=== PATIENT | female | born 1925 | race Caucasian/White ===

== ENCOUNTER 2017-02-10 21:36 | Inpatient (IN) | payer MEDICARE, BC ==
[~2017-02-10] VITALS: Ht 160 cm; Wt 51.7 kg
[2017-02-11 02:07] VITALS: BP 187/94; BMI 20.9
[2017-02-11] MEDS ORDERED: BUSPAR5 MG PO (03:45)
[2017-02-11] MEDS ORDERED: MELATONIN10 M1 PO (03:47)
[2017-02-11] MEDS ORDERED: ATARAX 25 MG TA25 MG PO (03:55)
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
[2017-02-11 07:47] LABS: BASOPHILS 0.7 % (0.0-2.0); EOSINOPHILS 6.3 % (0-7); HEMOGLOBIN 12.8 g/dL (12-16); IMMATURE GRANULOCYTES 0.2 % (0-5); LYMPHOCYTES 24.1 % (15-50); MCH 32.9 pg (26.0-34.0); MCHC 32.8 g/dL (31.0-37.0); MCV 100.3 fL (80.0-100.0); MEAN PLATELET VOLUME 11.9 fL (7.4-10.4); MONOCYTES 9.8 % (2-11); NEUTROPHILS 58.9 % (40-80); PLATELET COUNT 161 10x3/uL (130-400); RBC 3.89 10x6/uL (4.00-5.40); RDW 13.2 % (11.5-14.5); WBC 4.6 10x3/uL (4.8-10.8)
[2017-02-11 07:53] VITALS: BP 132/61
[2017-02-11 08:31] LABS: ALBUMIN 3.4 g/dL (3.4-5.0); ANION GAP 11.1 mmol/L (8-16); BILIRUBIN - TOTAL 1.11 mg/dL (0.2-1.3); CALCIUM 8.6 mg/dL (8.5-10.1); CARBON DIOXIDE 29.6 mmol/L (21.0-32.0); CHOL - HDL RATIO 2.8 ratio (2.3-4.1); CREATININE - SERUM 1.1 mg/dL (0.6-1.3); LDL-HDL RATIO 1.5 ratio (1.5-3.5); POTASSIUM - SERUM 3.7 mmol/L (3.5-5.1); PROTEIN - SERUM 6.2 g/dL (6.4-8.2); THYROID STIMULATING HORMONE 1.29 uIU/mL (0.36-3.74)
--- NOTE | 2017-02-11 11:10 | NUR ---
PT CONTINUES TO WONDER THE UNIT AND VERY RESTLESS. PT EXPRESSES SOME ANXIETY AND ENCOURAGED PT TO EXPRESS FEELINGS. NO AGGRESSION NOTED. PT MAKING RANDOM DELUSIONAL STATEMENTS. PT THINKS THAT HER IS HERE AND THAT OTHER FEMALE PATIENTS ARE MEN. REORIENTED AND REDIRECTED NEEDED. ORIENTED TO PERSON ONLY. WILL CONTINUE TO MONITOR AND CONTINUE WITH PLAN OF CARE.
--- NOTE | 2017-02-11 18:31 | PSY ---
PATIENT NAME:BOWEN ANGEL MEDICAL RECORD: [id number] : [birth year] LOCATION:[facility] ADMISSION DATE: 02/10/17 ACCOUNT: [id number] PSYCHIATRIC EVALUATION DATE OF EVALUATION: 02/11/17 Initial Psychiatric Workup IDENTIFYING DATA: This is the first [facility]ci admission and the first known psychiatric hospitalization for this 89-year-old white female. HISTORY OF PRESENT ILLNESS: This patient was admitted via the Emergency Room. She had been sent from the memory care unit of the [facility]. The patient had been exhibiting aggression towards both staff and other patients at the [facility]. She was very difficult to redirect and had been physically aggressive. Once the patient arrived on the unit, she was very restless. She slept only about 3 hours last night and is now hyperalert and wandering. PAST MEDICAL HISTORY: Positive only for osteoporosis. MEDICATION AT TIME OF ADMISSION: Included melatonin 10 mg h.s., hydroxyzine p.r.n. and BuSpar 5 mg 3 times a day for anxiety. PAST PSYCHIATRIC HISTORY: The patient has no reported past psychiatric history. FAMILY HISTORY: Unknown. SOCIAL HISTORY: The patient is . She is a resident of the [facility] memory care unit. She does not have substance abuse issues. REVIEW OF SYSTEMS: Noncontributory. MENTAL STATUS: On exam, the patient is pleasant, but clearly quite confused. Mood is slightly anxious. Affect is shallow. Speech is tangential. Content of thought is negative for clear cut psychosis. The patient is oriented to person only. She shows global memory impairment. ASSESSMENT: AXIS I: Alzheimer dementia with behavioral disturbance. AXIS II: No diagnosis. AXIS III: Osteoporosis. AXIS IV: Moderate. AXIS V: 34. PLAN: 1. The patient is admitted for further medical and psychiatric evaluation. 2. Daily supportive therapy. 3. Coordinate with family and facility regarding followup care. TRANSINT:[id number] Voice Confirmation ID: [id number] DOCUMENT ID: [id number] DOUGLAS PALOMO, GUILLE Joshua MD at 1831 CC: [id number] DICTATION DATE: 02/11/17 1104 FORGING PRESS OPERATOR: 02/11/17 1147 [place] [address]
[2017-02-11 19:00] VITALS: BP 140/60
--- NOTE | 2017-02-11 19:16 | NUR ---
PT WANDERING AND ATTEMPTS TO GO INTO OTHER PT ROOMS. PT THINKS EVERYONE IS HER SON OR . PT BECOMES AGITATED WHEN REDIRECTED.
[2017-02-11 21:00] VITALS: BP 140/60
--- NOTE | 2017-02-12 01:04 | NUR ---
B) Recieved patient in the hallway, alert and oriented to self only, very confused, looking for or son, difficult to redirect due to zero short term memory, I) Administered perscribed medications, redirected and oriented several times R) Medication compliant, wanders into others rooms looking for at times, P) Continue plan of care.
[2017-02-12 06:15] LABS: RAPID PLASMA REAGIN Non Reactive (Non Reactive)
[2017-02-12 08:22] LABS: FOLATE (FOLIC ACID) - SERUM 13.6 ng/mL (>3.0); VITAMIN D 25 HYDROXY 29.9 ng/mL (30.0-100.0)
--- NOTE | 2017-02-12 12:17 | NUR ---
Pt sits quietly in chair if close to male patient, whom she thinks is her son or . Will follow him around and gets agitated if redirected away from him. Poor short-term memory. Meds given as ordered. Redirection and reorientation as needed. Will continue to monitor and continue plan of care.
[2017-02-12 20:27] VITALS: BP 145/57
--- NOTE | 2017-02-13 04:09 | NUR ---
B) Recieved ambulating in the day room, alert and oriented to self, very confused with no short term memory, social with peers, cooperative with care I) Administered perscribed medications, redireced and and reoiented as needed, R) Medication compliant, unable to retain any information, asks the same question several times and does nt retain the answer, P) Continue plan of care, continue to monitor.
[2017-02-13 09:40] VITALS: BP 131/71
--- NOTE | 2017-02-13 14:56 | NUR ---
(B)RECEIVED PATIENT SITTING IN A CHAIR AT THE NURSE'S STATION. CONFUSED AND WANDERS IN OTHER ROOMS. POOR INSIGHT INTO THE REASON FOR HOSPITALIZATION. DIFFICULTY FOLLOWING CONVERSATION AND INSTRUCTIONS DUE TO IMPAIRED ABILITY TO COMPREHEND AND PROCESS INFORMATION. RANDOMLY REPEATS WORDS AEB "OUT OUT OUT, SEE SEE SEE, WORK WORK WORK." (I)ADMINISTER MEDS AND MONITOR COMPLIANCE. REORIENT NEEDED. (R)MED COMPLIANT. POOR REORIENTATION DUE TO IMPAIRED ABILITY TO RETAIN INFORMATION. (P)CONTIUE POC AND MAINTAIN FALL PRECAUTIONS.
[2017-02-13 19:30] VITALS: BP 160/72
--- NOTE | 2017-02-14 04:19 | NUR ---
PATIENT WALKING AROUND DINING AREA AND DAYROOM. PLEASANT, AND CALM. COOPERATIVE WITH MEDICATION. ASKING FOR MELINDA. PATIENT ORIENTED TO SELF, NOT TIME, PLACE OR SITUATION. IMPAIRED SHORT TERM MEMORY. SHE FOLLOWS DIRECTION BUT HAS TO BE CONSTANTLY REORIENTED. CONTINUE TO MONITOR, CONTINUE PLAN OF CARE.
[2017-02-14 08:27] VITALS: BP 138/73
--- NOTE | 2017-02-14 09:42 | PN ---
PATIENT:BOWEN ANGEL MEDICAL RECORD: [id number] LOCATION:[facility] ADMISSION DATE: 02/10/17 PROGRESS NOTE DATE OF SERVICE: 02/13/2017 SUBJECTIVE: No coherent complaint. OBJECTIVE: The patient has been more combative, striking at staff, and difficult to redirect. On exam, mood irritable. Affect is brittle. Speech is terse. Content of thought shows nonspecific paranoid ideation. Sensorium shows no change. ASSESSMENT: No change in diagnosis. PLAN: 1. Add Seroquel 25 mg b.i.d. 2. Continue other current medications. 3. Continue supportive therapy. TRANSINT:[id number] Voice Confirmation ID: [id number] DOCUMENT ID: [id number] GUILLE COLE III, MD at 0942 CC: [id number] DICTATION DATE: 02/13/17 1304 SUPERVISOR BONDING: 02/13/17 1538 ADM IN [place] [id number] [place] [address]
--- NOTE | 2017-02-14 09:42 | PN ---
PATIENT:BOWEN ANGEL MEDICAL RECORD: [id number] LOCATION:[facility] ADMISSION DATE: 02/10/17 PROGRESS NOTE DATE OF SERVICE: 02/12/2017 SUBJECTIVE: No new complaint. OBJECTIVE: The patient is pleasant, but exit seeking. She is somewhat intrusive and requires redirection, very poor memory. On exam, mood is euthymic. Affect is bland. Speech is tangential. Content of thought is negative for overt psychosis. Sensorium shows no change. ASSESSMENT: No change in diagnosis. PLAN: 1. Maintain present medications. 2. Continue supportive therapy. TRANSINT:[id number] Voice Confirmation ID: [id number] DOCUMENT ID: [id number] GUILLE COLE III, MD at 0942 CC: [id number] DICTATION DATE: 02/12/17 1222 ART SALES CONSULTANT: 02/12/17 1311 ADM IN [place] [id number] [place] [id number]
--- NOTE | 2017-02-14 13:54 | NUR ---
(B)RECEIVED PATIENT SITTING IN A CHAIR AT THE NURSES STATION. ORIENTED TO SELF ONLY. POOR INSIGHT INTO THE REASON FOR HOSPITALIZATION.DIFFICULTY FOLLOWING TOPIC OF CONVERSATION DUE TO IMPAIRED ABILITY TO COMPREHEND AND PROCESS INFORMATION. (I)ADMINISTER MEDS AND MONITOR COMPLIANCE. REORIENT NEEDED. (R)MED COMPLIANT. POOR REORIENTATION DUE TO INABILITY TO SEPARATE REALITY FROM FANTASY. (P)CONTINUE POC AND MAINTAIN FALL PRECAUTONS.
[2017-02-14 19:30] VITALS: BP 149/80
--- NOTE | 2017-02-15 00:49 | NUR ---
B) Recieved sitting in the day room, alert and oriented to self, calm and social with peers, cooperative with assessment, I) Administered perscribed medications, redirected and oriented as needed, R) medication compliant, resting now quietly in bed, P) Continue plan of care.
[2017-02-15 07:00] VITALS: BP 141/74
--- NOTE | 2017-02-15 12:17 | NUR ---
RECEIVED SITTING IN CHAIR THIS AM.IS ORIENTED TO SELF ONLY,ATTEMPT TO REORIENT TO TIME AND PLACE WITH QUESTIONABLE RESULTS.HAS NOT BEEN OBSERVED LOOKING FOR AND SPOUSE THIS AM.HAS IRREGULAR HEARTBEAT.IS CONTINENT OF BOWEL AND BLADDER.WILL CONTINUE WITH PLAN OF CARE,MONITOR FOR CHANGES AND SAFETY.
[2017-02-15 19:30] VITALS: BP 174/75
--- NOTE | 2017-02-15 21:57 | NUR ---
B) PATIENT CALM THIS PM, SHE HAS NOT FOLLOWED ANY MALE PATIENT, SHE IS EASIER TO REDIRECT TODAY, SHE HAS NOT BEEN AGGRESSIVE OR FOUGHT THIS PM. SHE AMBULATES INDEPENDENTLY. I) PROVIDE PRESCRIBED MEDS AND REDIRECT NEEDED. R) PATIENT IS COMPLIANT WITH MEDS AND UNIT [facility]IE[facility]. P) CONTINUE PLAN OF CARE.
[2017-02-16 07:33] LABS: APPEARANCE HAZY (CLEAR); BILIRUBIN NEGATIVE (NEGATIVE); COLOR YELLOW (YELLOW); GLUCOSE NEGATIVE (NEGATIVE); KETONE NEGATIVE (NEGATIVE); LEUKOCYTE ESTERASE TRACE (NEGATIVE); NITRITE NEGATIVE (NEGATIVE); PROTEIN NEGATIVE (NEGATIVE); SPECIFIC GRAVITY 1.015 (1.005-1.020)
[2017-02-16 07:34] LABS: BACTERIA MODERATE /hpf (NONE SEEN); EPITHELIAL CELLS 0-5 /hpf (0-5); MUCUS >1+ /lpf (NONE SEEN); RED CELLS - URINE RARE /hpf (0-5)
--- NOTE | 2017-02-16 08:51 | PN ---
PATIENT:BOWEN ANGEL MEDICAL RECORD: [id number] LOCATION:[facility] ADMISSION DATE: 02/10/17 PROGRESS NOTE DATE OF SERVICE: 02/14/2017 SUBJECTIVE: No new complaint. OBJECTIVE: The patient continues to be confused. She wanders about the unit a great deal. Continues to exist seek a little bit. She is taking her medications. On exam, mood for the most part euthymic. Affect is very shallow. Speech is tangential. Content of thought is negative for clear cut psychosis. The patient is oriented only to person with global memory impairment. ASSESSMENT: No change in diagnosis. PLAN: 1. Maintain current medication. 2. Continue supportive therapy. TRANSINT:[id number] Voice Confirmation ID: [id number] DOCUMENT ID: [id number] GUILLE COLE III, MD at 0851 CC: [id number] DICTATION DATE: 02/14/17 1113 OIL WELL PUMPER: 02/14/17 1121 ADM IN [place] [id number] [place] [id number]
[2017-02-16 09:12] VITALS: BP 100/41
--- NOTE | 2017-02-16 13:17 | NUR ---
B.) Received this am, sitting in chair alert and oriented to self only, poor insight to reason for hospitalization. I.) Administer medications and monitor compliance. Redirect and reorient as need. Monitor safety. R.) Compliant with medications, poor reorientation due to inability to comprehend and process information, answer question of where are you with "i'm here, I'm here, just like them I'm here there, I'll sit right there." No evidence of reorientation. Safely ambulates on unit with no noted exit seeking behavior. No aggression. P.) Contontinue with plan of care.
[2017-02-16 20:23] VITALS: BP 133/98
--- NOTE | 2017-02-16 21:19 | NUR ---
RECEIVED IN HALLWAY. COULD NOT FIND HER ROOM. ASSISTED TO ROOM. CONFUSED. ATTEMPTS TO GET OUT OF BED WITHOUT ASSIST AT TIMES. NO SIGNS OF AGGRESSION. REDIRECT AND REOIRENT NEEDED. REIFORCE FALLS SAFETY. PM MEDS GIVEN ORDERED. RESTING IN BED AT THIS TIME. CONTINUE PLAN OF CARE
[2017-02-17 08:13] VITALS: BP 169/79
[2017-02-17 13:06] VITALS: Ht 160 cm; Wt 51.7 kg
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
--- NOTE | 2017-02-18 00:36 | NUR ---
RECEIVED IN HALLWAY. VERY CONFUSED. WANTING STAFF TO BE AT HER SIDE CONTINUOUSLY. REQUESTING WE WALK HER OUTSIDE. FALLOWING STAFF AROUND UNIT. NO SIGNS OF AGGRESSION. CALM AND COOPERATIVE WITH CARE AND ASSESSMENT. REDIRECT AND REOIENT NEEDED. PM MEDS GIVVEN ORDERED. RESTING EYES CLOSED AT THIS TIME. CONTINUE PLAN OF CARE
--- NOTE | 2017-02-18 08:11 | PN ---
PATIENT:BOWEN ANGEL MEDICAL RECORD: [id number] LOCATION:[facility] ADMISSION DATE: 02/10/17 PROGRESS NOTE DATE OF SERVICE: 02/17/2017 SUBJECTIVE: No new complaint. OBJECTIVE: The patient is pleasant. She is somewhat less intrusive. She did sleep quite well last night. She is tolerating medication. On exam, mood is euthymic. Affect is bland. Speech is tangential. Content of thought is negative for overt psychosis. Sensorium is unchanged. ASSESSMENT: No change in diagnosis. PLAN: 1. Continue all current medications. 2. Continue supportive therapy. TRANSINT:[id number] Voice Confirmation ID: [id number] DOCUMENT ID: [id number] GUILLE COLE III, MD at 0811 CC: [id number] DICTATION DATE: 02/17/17 1222 AGRICULTURE MANAGER: 02/17/17 1833 ADM IN [facility] [address] [place] [address]
--- NOTE | 2017-02-18 08:11 | PN ---
PATIENT:BOWEN ANGEL MEDICAL RECORD: [id number] LOCATION:[facility] ADMISSION DATE: 02/10/17 PROGRESS NOTE DATE OF SERVICE: 02/16/2017 SUBJECTIVE: No new complaint. OBJECTIVE: The patient continues to wander about. She becomes much more agitated and at times combative in the late afternoon and early evening. On exam this morning, the patient's mood is euthymic. Affect is bland. Speech is tangential. Content of thought is positive for moderate delusional ideation. Sensorium shows no change. ASSESSMENT: No change in diagnosis. PLAN: 1. Change Seroquel to 50 mg at 3:00 p.m. only. 2. Continue other medications. 3. Continue supportive therapy. TRANSINT:[id number] Voice Confirmation ID: [id number] DOCUMENT ID: [id number] GUILLE COLE III, MD at 0811 CC: [id number] DICTATION DATE: 02/16/17 1229 DISPATCHER SERVICE CHIEF: 02/16/172002 ADM IN [address] [place] [address]
[2017-02-18 08:36] VITALS: BP 124/52
--- NOTE | 2017-02-18 11:56 | NUR ---
B) Received pt in day room for group activity, pt enjoys dancing with search director and was quite appreciative, med compliant this a.m. with lorazepam 0.5 mg admin PO for anxiety earlier this shift - see mar., medication effective. I) Administer meds as ordered and provide group activity. R) No s/s adverse reaction to meds, positive results from group participation/dance, pt mood more cheerful since dancing. P) Cont plan of care including medications and group activity.
[2017-02-18 19:30] VITALS: BP 155/81
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
--- NOTE | 2017-02-18 23:14 | NUR ---
B) Recieved patinent in the day room, alert and oriented to self, restless and unaware of why she is here, closely monitored by MHT due her wanting to wander out of the unit, I) Administered perscribed medications, redirected and oriented as needed, R) Medication compliant, has to be told what to do with her pills; to swallow them, P) Continue plan of care, continue to monitor.
[2017-02-19 09:32] VITALS: BP 158/57
--- NOTE | 2017-02-19 10:16 | NUR ---
B) PATIENT IS CONFUSED, SHE WAS NOT ABLE TO TELL THE GROUP HER NAME. SHE IS CALM. SHE HAS NOT SHOWN ANY AGGRESSION TODAY. SHE IS AMBULATING INDEPENDENTLY. I) PROVIDE PRESCRIBED MEDS, REDIRECT TO UNIT [facility]. R) PATIENT IS COMPLIANT WITH MEDS AND SHE WILL REDIRECT. P) CONTINUE PLAN OF CARE.
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
--- NOTE | 2017-02-19 18:05 | NUR ---
PATIENT IS CALMER NOW, SHE IS NOT AGGRESSIVE AT THIS TIME, SHE IS WALKING AROUND, BUT CONFUSED.
--- NOTE | 2017-02-19 18:44 | NUR ---
PATIENT IS GETTING SLEEPY, DID ASSIST PATIENT TO A DOUGIE CHAIR SINCE SHE IS GETTING DROWSY AND UNSTEADY. REMAINS CALM AT THIS TIME.
[2017-02-19 20:24] VITALS: BP 144/66
--- NOTE | 2017-02-20 00:30 | NUR ---
PATIENT IN DAYROOM. SHE HAS BEEN WANDERING AND EXIT SEEKING. SHE GETS AGITATED WITH STAFF WHEN REDIRECTED. PATIENT WAS GIVEN AN ACTIVITY (FOLDING) BECAME CALM. SHE IS ORIENTED TO FIRST NAME ONLY. PATIENT WAS REORIENTED BUT IS UNABLE TO RETAIN. CONTINUE TO MONITOR, CONTINUE PLAN OF CARE.
--- NOTE | 2017-02-20 06:44 | NUR ---
PATIENT BECAME AGITATED AND WAS HITTING AT STAFF. PRN 0.5 MG ATIVAN GIVEN CONTINUE TO MONITOR
[2017-02-20 09:01] VITALS: BP 147/60
--- NOTE | 2017-02-20 11:54 | NUR ---
B) PATIENT IS CONFUSED, SHE DOES KNOW HER NAME, BUT SHE IS NOT AWARE OF PLACE OR TIME. SHE IS ANXIOUS AND TRYING TO WALK AROUND, BUT SHE IS UNSTEADY THIS AM. I) PROVIDE PRESCRIBED MEDS AND REDIRECT NEEDED. R) PATIENT IS COMPLIANT WITH MEDS. P) CONTINUE PLAN OF CARE.
[2017-02-20 21:50] VITALS: BP 151/83
--- NOTE | 2017-02-21 00:54 | NUR ---
B) Receved patient sitting in a wheelchair in the day room, alert and oriented to self, tries to stand unassisted at times, I) Administered perscribed medications, redirected as needed, monitored for falls and safety, R) medication compliant, easy to redirect this shift, P) Continue plan of care, continue to monitor.
[2017-02-21 09:28] VITALS: BP 103/73
--- NOTE | 2017-02-21 11:57 | PN ---
PATIENT:BOWEN ANGEL MEDICAL RECORD: [id number] LOCATION:[facility] ADMISSION DATE: 02/10/17 PROGRESS NOTE DATE OF SERVICE: 02/20/2017 SUBJECTIVE: The patient's case was discussed with staff. She has no new complaint. OBJECTIVE: The patient is in good behavioral control with limited insight about her condition. She tolerates her medicines well. ASSESSMENT: No change in diagnoses. PLAN: Current medicines and therapies have been reviewed and will be maintained. Long-term prognosis is guarded. TRANSINT:[id number] Voice Confirmation ID: [id number] DOCUMENT ID: [id number] DELFINA WOOD MD at 1157 CC: [id number] DICTATION DATE: 02/20/17 1431 DEVELOPER EVANGELIST: 02/20/17 1451 ADM IN [place] [id number] [place] [address]
--- NOTE | 2017-02-21 14:27 | NUR ---
B) PATIENT IS CALM AND COMPLIANT, SHE IS REDIRECTABLE. SHE IS CONFUSED, DOES NOT COMPREHEND CONVERSATIONS AND SHE'LL SAY "PRETTY, PRETTY" OR "YOU'RE THE MOST BEAUTIFUL MAN I EVER SAW" OR "PURPLE, PURPLE". I) PROVIDE PRESCRIBED MEDS. R) PATIENT IS SITTING NEXT TO STAFF AND SHE IS CALM, SHE IS LISTENING TO REDIRECTION. P) CONTINUE PLAN OF CARE.
[2017-02-21 19:30] VITALS: BP 154/92
--- NOTE | 2017-02-22 01:12 | NUR ---
B) Recieved patient in the day room, alert and anxious, patient was restless and combative with staff, I) Administered perscribed medications, PRN Ativan 1 mg IM given for anxiety at 1855, R) Medication compliant, resting not quietly in bed, P0 Continue plan of care, continue to monitor.
[2017-02-22 07:00] VITALS: BP 148/93
[2017-02-22 08:28] VITALS: BP 148/93
--- NOTE | 2017-02-22 13:07 | NUR ---
B) States she is feeling fine today, has no idea what this buiding is, as far as the State, thinks its number 1 or number 2. Restless periods, quiet and withdrawn other times. I) Administer medications as ordered, redirect and reorient PRN. R) Compliant with medications taken with applesauce. Remains very confused, flat affect, no acting out or behavior problem today. P) Continue to monitor per plan of care.
[2017-02-22 19:30] VITALS: BP 150/71
--- NOTE | 2017-02-22 20:10 | NUR ---
RECEIVED IN DAYROOM. SITTING IN WHEELCHAIR. CALM AND COOPERATIVE WITH CARE AND ASSESSMENT. NO SIGNS OF AGGRESSION. NOT EXIT SEEKING. NOT SOCIALIZING WITH STAFF OR PEERS. CONFUSED. REDIRECT AND REORIENT NEEDED. CONTINUES TO SIT IN WHEELCHAIR QUIETLY. CONTINUE PLAN OF CARE
--- NOTE | 2017-02-23 03:13 | NUR ---
PRN ATIVAN 1 MG IM GIVEN FOR ANXIETY AT 0305.
[2017-02-23 08:08] VITALS: BP 153/82
--- NOTE | 2017-02-23 10:30 | PN ---
PATIENT:BOWEN ANGEL MEDICAL RECORD: [id number] LOCATION:[facility] ADMISSION DATE: 02/10/17 PROGRESS NOTE DATE OF SERVICE: 02/19/2017 SUBJECTIVE: No new complaint. OBJECTIVE: The patient remains active about the unit. She remains somewhat intrusive and seeks an exit. She is very easily agitated. Aside from this, the patient has not been directly combative in the last 24 hours. She appears to be tolerating medication well. On exam, mood is anxious, affect is very shallow. Speech is tangential and rambling. Content of thought is still positive for delusional ideation about her parents. Sensorium shows no change. ASSESSMENT: No change in diagnosis. PLAN: 1. Maintain all current medications. 2. Continue supportive therapy. TRANSINT:[id number] Voice Confirmation ID: [id number] DOCUMENT ID: [id number] GUILLE COLE III, MD at 1030 CC: [id number] DICTATION DATE: 02/19/17 1208 DANDY OPERATOR: 02/19/17 1619 ADM IN [place] [id number] [place] [address]
--- NOTE | 2017-02-23 16:58 | PN ---
PATIENT:BOWEN ANGEL MEDICAL RECORD: [id number] LOCATION:[facility] ADMISSION DATE: 02/10/17 PROGRESS NOTE DATE OF SERVICE: 02/23/2017 SUBJECTIVE: No new verbal complaint. OBJECTIVE: The patient continues to show agitation and occasional combativeness, especially in the afternoon and early evening. She is very difficult to redirect. On exam, mood is slightly irritable. Affect is very brittle. Speech is rambling and tangential. Content of thought shows nonspecific paranoid ideation. Sensorium shows no change. ASSESSMENT: No change in diagnosis. PLAN: 1. Discontinue Seroquel and substitute Risperdal 1 mg twice a day. 2. Continue other medications. 3. Continue supportive therapy. TRANSINT:[id number] Voice Confirmation ID: [id number] DOCUMENT ID: [id number] GUILLE COLE III, MD at 1658 CC: [id number] DICTATION DATE: 02/23/17 1145 ECG TECHNICIAN: 02/23/17 1345 ADM IN [place] [address] [place] [address]
--- NOTE | 2017-02-23 17:56 | NUR ---
ORIENTED TO SELF ONLY.REPEATS WORDS,"HELLO,HELLO","GOOD WAY,GOOD WAY","PRETTY,PRETTY,PRETTY","AROUND,AROUND,AROUND IT".NO COMPLETE THOUGHTS SPOKEN.RESTLESS AT TIMES.IS COMPLIANT WITH MEDS.WILL CONTINUE WITH PLAN OF CARE,MONITOR FOR CHANGES AND SAFETY.
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
[2017-02-23 20:00] VITALS: BP 125/73
--- NOTE | 2017-02-23 20:42 | NUR ---
RECEIVED IN DAYROOM. SITTING IN A CHAIR INSIDE DOOR. CONFUSED. CALM AND COOPERATIVE WITH CARE AND ASSESSMENT. NO SIGNS OF AGGRESSION. CONTINUES TO SIT QUIETLY IN CHAIR. CONTINUE PLAN OF CARE
[2017-02-24 08:59] VITALS: BP 163/69
--- NOTE | 2017-02-24 18:21 | NUR ---
ORIENTED TO SELF ONLY.DOES NOT VERBALIZE A COMPLETE THOUGHT.CONTINUES TO REPEAT WORDS.COMPLIANT WITH MEDS.AMBULATORY IN UNIT.WILL CONTINUE WITH PLAN OF CARE,MONITOR FOR CHANGES AND SAFETY.
--- NOTE | 2017-02-24 19:42 | NUR ---
RECEIVED IN DAYROOM. SITTING IN CHAIR WITH PEERS AT HER SIDE. NOT SOCIALIZING. CONFUSED. CALM AND COOPERATIVE WITH CARE AND ASSESSMENTS. NO SIGNS OF AGGRESSION. REDIRECT AND REORIENT NEEDED. REINFORCE FALLS SAFETY. CONTINUES TO SIT QUIETLY IN CHAIR. CONTINUE PLAN OF CARE
[2017-02-24 22:35] VITALS: BP 174/89
[2017-02-25 08:44] VITALS: BP 160/65
--- NOTE | 2017-02-25 09:31 | NUR ---
Nutrition Follow Up: Chart reviewed. Pt is eating 56% meal avg on a regular diet. She is receiving Ensure with meals. +BM 02/20/17. No new wt to assess. No new labs. Meds noted including Vit B12, Vit D. Pt with fair po intake. No BM x 4 days. Rec continue current diet, supplement regimen. Will continue to provide selective menus and honor food preferences. RD following.
--- NOTE | 2017-02-25 12:19 | NUR ---
B) PATIENT IS CONFUSED, BUT SHE HAS BEEN PLEASANT, SHE HAS NOT SHOWN ANY AGGRESSION TODAY. SHE HAS BEEN INTERACTING IN GROUPS. SHE AMBULATES INDEPENDENTLY. I) PROVIDE PRESCRIBED MEDS AND REDIRECT NEEDED. R) PATIENT IS COMPLIANT WITH MEDS. P) CONTINUE PLAN OF CARE.
[2017-02-25 20:00] VITALS: BP 182/77
--- NOTE | 2017-02-25 23:26 | NUR ---
B) Recieved patient in the day room, alert and oriented to self, restless and combative at times, struck a MHT and then said that she did no do anything, I) Administered perscribed medications, monitored for falls and safety, R) Medication compliant, defiant and demanding of her own way, P) Continue plan of care.
--- NOTE | 2017-02-25 23:47 | NUR ---
ATARAX 25 MG PO GIVEN CRUSHED IN APPLESAUCE FOR ANXIETY.
[2017-02-26 09:05] VITALS: BP 151/77
--- NOTE | 2017-02-26 10:26 | PN ---
PATIENT:BOWEN ANGEL MEDICAL RECORD: [id number] LOCATION:L[facility]IANA Costello112 ADMISSION DATE: 02/10/17 PROGRESS NOTE DATE OF SERVICE: 02/24/2017 SUBJECTIVE: No new complaint. OBJECTIVE: The patient again needed a p.r.n. last night. She does much better when she does have structured activity. On exam, mood is slightly anxious. Affect is shallow. Speech is tangential. Content of thought is unchanged. Sensorium is unchanged. ASSESSMENT: No change in diagnosis. PLAN: 1. We will maintain current medication and close observation. 2. Continue supportive therapy. TRANSINT:[id number] Voice Confirmation ID: [id number] DOCUMENT ID: [id number] GUILLE COLE III, MD at 1026 CC: [id number] DICTATION DATE: 02/24/17 1216 DISTRICT GAUGER: 02/24/17 1226 ADM IN [place] [id number] [place] [id number]
--- NOTE | 2017-02-26 11:41 | NUR ---
B) PATIENT IS PLEASANT AND SHE IS CALM, SHE HAS NOT MADE ANY AGGRESSIVE ACTIONS TODAY. SHE AMBULATES INDEPENDENTLY. SHE IS AWAKE IN THE DAY ROOM, INTERACTS MINIMALLY IN GROUPS AND ACTIVITIES SHE MOSTLY TALKS IN WORD SALAD. I) PROVIDE PRESCRIBED MEDS AND REDIRECT NEEDED. R) PATIENT IS COMPLIANT WITH MEDS. P) CONTINUE PLAN OF CARE.
--- NOTE | 2017-02-26 14:31 | PN ---
PATIENT:BOWEN ANGEL MEDICAL RECORD: [id number] LOCATION:[facility] Costello112 ADMISSION DATE: 02/10/17 PROGRESS NOTE DATE OF SERVICE: 02/25/2017 SUBJECTIVE: The patient's case was discussed with staff. She has no new complaint. OBJECTIVE: The patient is in good behavioral control with limited insight about her condition. She tolerates her medicines well. ASSESSMENT: No change in diagnoses. PLAN: Current medicines and therapies have been reviewed and will be maintained. Her long-term prognosis is guarded. TRANSINT:[id number] Voice Confirmation ID: [id number] DOCUMENT ID: [id number] DELFINA WOOD MD at 1431 CC: [id number] DICTATION DATE: 02/25/17 1414 REMOTE ENCODING OPERATIONS SUPERVISOR: 02/25/17 1532 ADM IN [place] [id number] [place] [address]
[2017-02-26 19:30] VITALS: BP 156/50
--- NOTE | 2017-02-26 22:07 | PN ---
PATIENT:BOWEN ANGEL MEDICAL RECORD: [id number] LOCATION:[facility] Gates ADMISSION DATE: 02/10/17 PROGRESS NOTE DATE OF SERVICE: 02/26/2017 SUBJECTIVE: No new complaint. OBJECTIVE: The patient has been doing considerably better over the last 48 hours. She is much less intrusive. She is cooperative, taking medications as prescribed. On exam, mood is euthymic. Affect is bland. Speech is rather terse. Content of thought focuses only on somatic concerns. Sensorium shows no change. ASSESSMENT: No change in diagnosis. PLAN: 1. Maintain current treatment plan. 2. Continue supportive therapy. TRANSINT:[id number] Voice Confirmation ID: [id number] DOCUMENT ID: [id number] GUILLE COLE III, MD at 2207 CC: [id number] DICTATION DATE: 02/26/17 1146 COMMERCIAL LINES ACCOUNT ASSISTANT: 02/26/17 1341 ADM IN [place] [id number] [place] [address]
--- NOTE | 2017-02-27 01:11 | NUR ---
B) Recieved sitting in the day room, alert and oriented to self, intrusive and needy at times, I) Administered perscribed medications, monitored for falls and safety, R) medication compliant, resting now quietly in bed, P) Continue plan of care.
[2017-02-27 08:33] VITALS: BP 143/77
--- NOTE | 2017-02-27 09:00 | NUR ---
B) PATIENT IS AWAKE AND SHE IS PLEASANT, SHE IS AMBULATING INDEPENDENTLY. SHE IS HAVING A DIFFICULT TIME REMEMBERING HOW TO SWALLOW. SHE IS CONFUSED, USES WORD SALAD. I) PROVIDE PRESCRIBED MEDS. R) PATIENT IS COMPLIANT WITH MEDS, SHE TAKES THEM CRUSHED IN [place]A PUDDING. P) CONTINUE PLAN OF CARE.
[2017-02-27] MEDS ORDERED: ARICEPT10 MG PO (12:07)
[2017-02-27] MEDS ORDERED: LISINOPRIL10 MG PO (12:07)
[2017-02-27] MEDS ORDERED: MILK OF MAGNESI30 ML PO (12:08)
[2017-02-27] MEDS ORDERED: TRAZODONE HCL50 MG PO (12:08)
[2017-02-27] MEDS ORDERED: RISPERDAL0.5 MG PO ×2 (12:08)
[2017-02-27] MEDS ORDERED: VITAMIN B-121000 MCG PO (12:09)
[2017-02-27] MEDS ORDERED: SENOKOT-S TABLE1 TAB PO (12:09)
[2017-02-27] MEDS ORDERED: VITAMIN D31000 UNI2 PO (12:09)
--- NOTE | 2017-02-27 13:14 | NUR ---
ELLEN SPOKE WITH PT'S SON, SUMANTH, ABOUT DISCHARGING TODAY AT 1530 TO THE [facility].
--- NOTE | 2017-02-27 13:25 | NUR ---
PATIENT WILL D/C TODAY BACK TO [facility], ALL PAPERWORK FAXED, PATIENT'S BELONGINGS PACKED, ATTEMPTED TO CALL REPORT, NURSE NOT AVAILABLE, WILL TRY AGAIN LATER.
--- NOTE | 2017-02-27 14:35 | NUR ---
CALLED REPORT TO THE [facility]. PATIENT IS READY TO GO. ALL PAPERWORK WORK FAXED, WITH D/C ORDERS AND MAR. HARD COPY MADE AND WILL GIVE TO THE CHIEF SECURITY OFFICER.
--- NOTE | 2017-02-27 15:03 | NUR ---
[facility] RECRUITING ASSOCIATE HERE TO MEDICAL RECEPTIONIST PATIENT, HARD COPY AND BELONGINGS SENT WITH DIVER, PATIENT ASSISTED TO VEHICLE BY RECRUITING ASSOCIATE AND OUR STAFF.
--- NOTE | 2017-03-01 06:18 | DS ---
PATIENT:BOWEN ANGEL :[birth year] MEDICAL RECORD: [id number] DISCHARGE SUMMARY ADMISSION DATE: 02/10/17 DISCHARGE DATE: 02/27/17 DATE OF ADMISSION: 02/10/2017. DATE OF DISCHARGE: 02/27/2017. HISTORY OF PRESENT ILLNESS: This was the first jail admission for this 89-year-old white female. She was brought to the Emergency Department at [facility] because of aggressive behavior toward staff and other patients at the [facility]. For further details, please see previously dictated history. COURSE IN THE HOSPITAL: The patient was seen in consultation by Dr. Kellogg. Dr. Kellogg noted the prior history of osteoporosis, but medical history beyond that was essentially unremarkable. It was noted during the course of the hospitalization the patient did exhibit hypertension. She was started on lisinopril 10 mg daily. Because of persistent agitation, it was necessary to use Risperdal dosage, was maintained at 1 mg twice a day throughout the majority of the hospitalization. She was also started on vitamin B12 and vitamin D supplements and placed on Aricept 10 mg at bedtime as well as trazodone 50 mg at bedtime. The patient showed a very slow resolution of her agitation and intrusiveness. Particular problem was episodes of agitation and the occasional combativeness in the afternoon and evening; however, as the hospitalization progressed, these behaviors improved considerably and by the time of discharge, the patient was calm and tractable, was elected to reduce the dose of Risperdal to 0.5 mg twice a day at the time of discharge. FINAL DIAGNOSES: AXIS I: Alzheimer dementia with behavioral disturbance. AXIS II: No diagnosis. AXIS III: Osteoporosis, hypertension. AXIS IV: Moderate. AXIS V: 40. PLAN: 1. The patient is discharged on current medications back to the [facility]. 2. Diet and activities as tolerated. 3. Follow up through primary care Nel TRANSINT:[id number] Voice Confirmation ID: [id number] DOCUMENT ID: [id number] GUILLE COLE III, MD at 0618 CC: [id number] DICTATION DATE: 02/27/17 1243 TECH BRAZER TESTER: 02/28/17 0315 DIS IN 02/27/17 [place] [id number] [place] [address]
== END 2017-02-27 15:03 | disposition home or self-care (01) | DRG 57 ==
LOC: D.PSYCH 21:36
PROVIDERS: ADMIT Psychiatry & Neurology Psychiatry
DX: G30.9 Alzheimer's disease, unspecified (principal); F02.81 Dementia in other diseases classified elsewhere, unspecified severity, with behavioral disturbance; M81.0 Age-related osteoporosis without current pathological fracture; I10 Essential (primary) hypertension; F41.9 Anxiety disorder, unspecified; E53.8 Deficiency of other specified B group vitamins; E55.9 Vitamin D deficiency, unspecified

== ENCOUNTER 2017-06-23 21:30 | Inpatient (IN) | payer MEDICARE, BC ==
[~2017-06-23] VITALS: Ht 167.6 cm; Wt 49.7 kg
[~2017-06-23 21:30] MED LIST: ARICEPT10 MG PO; ATARAX 25 MG TA25 MG PO; BUSPAR5 MG PO; LISINOPRIL10 MG PO; MELATONIN10 M1 PO; MILK OF MAGNESI30 ML PO; RISPERDAL0.5 MG PO; SENOKOT-S TABLE1 TAB PO; TRAZODONE HCL50 MG PO; VITAMIN B-121000 MCG PO; VITAMIN D31000 UNI2 PO
[2017-06-23] MEDS ORDERED: BUSPAR5 MG PO (22:09)
[2017-06-23] MEDS ORDERED: VITAMIN D250000 UNIT PO (22:10)
--- NOTE | 2017-06-23 23:10 | NUR ---
Patient arrived via EMS from [facility] memory unit for aggression and anxiety at 2100, VSS T 98.0 B/P 162/92, P 90, R 18, O2 96%, Code status is DNR per [facility] and son Lukasz OttoLIZA, code julisa Cruz, physician aware of arrival, patient is clean and well groomed, dressed in nightgown, will continue to monitor.
[2017-06-23 23:29] LABS: APPEARANCE CLEAR (CLEAR); BACTERIA MODERATE /hpf (NONE SEEN); BILIRUBIN NEGATIVE (NEGATIVE); COLOR STRAW (YELLOW); EPITHELIAL CELLS 0-5 /hpf (0-5); GLUCOSE NEGATIVE (NEGATIVE); KETONE NEGATIVE (NEGATIVE); LEUKOCYTE ESTERASE NEGATIVE (NEGATIVE); NITRITE NEGATIVE (NEGATIVE); PROTEIN NEGATIVE (NEGATIVE); RED CELLS - URINE 0-5 /hpf (0-5); UROBILINOGEN NORMAL (NORMAL); WHITE CELLS - URINE 0-5 /hpf (0-5)
[2017-06-24 02:58] VITALS: BP 162/92
[2017-06-24 05:36] LABS: BASOPHILS 0.6 % (0-2); EOSINOPHILS 3.2 % (0-7); HEMATOCRIT 38.7 % (36.0-48.0); HEMOGLOBIN 12.7 g/dL (12-16); IMMATURE GRANULOCYTES 0.2 % (0-5); LYMPHOCYTES 34.1 % (15-50); MCH 33.1 pg (26.0-34.0); MCHC 32.8 g/dL (31.0-37.0); MCV 100.8 fL (80.0-100.0); MONOCYTES 12.3 % (2-11); NEUTROPHILS 49.6 % (40-80); PLATELET COUNT 183 10x3/uL (130-400); RBC 3.84 10x6/uL (4.00-5.40); RDW 13.2 % (11.5-14.5); WBC 4.6 10x3/uL (4.8-10.8)
[2017-06-24 05:46] LABS: HEMOGLOBIN A1C 5.6 % (4.8-6.0)
[2017-06-24 06:02] LABS: ALBUMIN 3.1 g/dL (3.4-5.0); ANION GAP 10.7 mmol/L (8-16); BILIRUBIN - TOTAL 0.6 mg/dL (0.2-1.3); CALCIUM 8.7 mg/dL (8.5-10.1); CARBON DIOXIDE 28.5 mmol/L (21.0-32.0); CHOL - HDL RATIO 2.5 ratio (2.3-4.1); CREATININE - SERUM 1.5 mg/dL (0.6-1.3); LDL-HDL RATIO 1.3 ratio (1.5-3.5); POTASSIUM - SERUM 4.2 mmol/L (3.5-5.1); PROTEIN - SERUM 6.3 g/dL (6.4-8.2); THYROID STIMULATING HORMONE 1.74 uIU/mL (0.36-3.74)
[2017-06-24 08:37] VITALS: BP 151/69
--- NOTE | 2017-06-24 10:45 | NUR ---
B) Rec'd pt in dining room for b'fast, alert, confused, pleasant mood, calm, no aggression noted. I) Admin meds as ordered, provide group therapy. R) Responds well to group therapy, especially enjoying music therapy clapping hands and keeping time to the music. P) Cont plan of care including meds and group therapy.
[2017-06-24 21:41] VITALS: BP 148/84
--- NOTE | 2017-06-25 01:13 | NUR ---
B) Recieved patient in the day room, alert and oriented to self only, very confused and anxious at times, I) Administered perscribed medications and PRN Ativan 0.5 mg PO given for anxiety, R) Medication compliant, resting quietly now, P) Continue plan of care.
[2017-06-25 07:25] LABS: RAPID PLASMA REAGIN Non Reactive (Non Reactive)
--- NOTE | 2017-06-25 08:10 | NUR ---
ASSESSMENT COMPLETE. CONFUSED. DISORIENTED TO TIME,PLACE AND SITUATION.
[2017-06-25 08:18] LABS: FOLATE (FOLIC ACID) - SERUM 10.8 ng/mL (>3.0)
[2017-06-25 08:29] VITALS: BP 133/67
[2017-06-25 09:15] LABS: VITAMIN D 25 HYDROXY 48.3 ng/mL (30.0-100.0)
--- NOTE | 2017-06-25 09:15 | NUR ---
SITTING UP AT TABLE. FIDGETING WITH BRACLETS. TRYING TO PULL NAME BRACLET OFF. SPIT PILLS OUT WHEN PLACED IN MOUTH. PILLS CRUSHED AND GIVEN.
--- NOTE | 2017-06-25 10:10 | NUR ---
SITTING UP IN RECLINER. WANTING TO GET UP. WHEN ASKED TO STAY IN RECLINER, BEGAN STOMPING FEET ON CHAIR, CLAPPING HANDS, AND YELLING OUT.
--- NOTE | 2017-06-25 10:27 | NUR ---
CONTINUES BEING AGITATED AND TRYING TO CLIMB OUT OF RECLINER AND YELLING. ATIVAN PO GIVEN.
--- NOTE | 2017-06-25 11:24 | NUR ---
RESTING QUIETLY WITH EYES CLOSED AT THIS TIME. RESP EVEN,NONLABORED.
--- NOTE | 2017-06-25 13:40 | HP ---
PATIENT: BOWEN ANGEL MEDICAL RECORD: [id number] ACCOUNT: [id number] LOCATION:LILIANA Ojeda : [birth year] ADMISSION DATE: 06/23/17 HISTORY AND PHYSICAL EXAMINATION IDENTIFYING DATA: The patient is 89 years old and she is admitted to the hospital on a voluntary basis. CHIEF COMPLAINT: Agitation and aggression. HISTORY OF PRESENT ILLNESS: The patient is known to us from previous clinical contact. She has an advanced dementia. Apparently, she had been aggressive with staff and other patients at the [facility]. The patient denies this and in fact is showing evidence of very severe cognitive impairment. In fact, when I arrived to see her at lunchtime, she was having to be fed because she could not feed herself. PAST MEDICAL HISTORY: Significant for osteoporosis. PAST PSYCHIATRIC HISTORY: Significant for an advanced dementia for which the patient has been hospitalized multiple times. FAMILY HISTORY: Unknown. ALLERGIES: No known drug allergies. CURRENT MEDICATIONS: Please see the admissions MAR. SOCIAL HISTORY: The patient is . She lives in the [facility]. She has no history of drug or alcohol abuse and generally functioned well both socially and occupationally. MENTAL STATUS EXAMINATION: The patient is awake, alert and oriented to person only. Her mood is euthymic. Her affect is appropriate. Thought processes are disorganized with memory, concentration and abstraction abilities being severely impaired. She denies any active intent to harm herself or others. She is tolerating her medications well. ASSETS: Supportive family members. LIABILITIES: Limited insight. DIAGNOSTIC IMPRESSION: AXIS I: Senile dementia of the Alzheimer's type with behavioral disturbances. AXIS II: None. AXIS III: Osteoporosis. AXIS IV: Moderate stressors. AXIS V: Global assessment of functioning is 25. PLAN: At the time of admission, the patient is in good behavioral control with limited insight about her condition. She does tolerate her medicines well. She will be treated with both mood stabilizing and memory enhancing medications. TRANSINT:[id number] Voice Confirmation ID: [id number] DOCUMENT ID: [id number] HISTORY AND PHYSICAL [id number] BOWEN ANGEL, DELFINA MCCLURE at 1340 CC: [id number] DICTATION DATE: 06/24/17 1442 DREDGE CAPTAIN: 06/24/17 1722 ADM IN [place] [id number] [place] [address]
[2017-06-25 19:52] VITALS: BP 141/55
--- NOTE | 2017-06-25 20:00 | NUR ---
B) RECEIVED AMBULATING ABOUT IN DINING ROOM. CONFUSED AND ORIENTED TO NAME ONLY. CALM AND COOPERATIVE, RESTLESS ABOUT STAYING SEATED AT TABLE. SHE AMBULATES INDEPENDENTLY, BUT A LITTLE UNSTEADY. I) ADMINISTERED PRESCRIBED MEDICATIONS. ASSESSMENT COMPLETED. VSS. R) COMPLIANT WITH TAKING MEDS IN APPLESAUCE. FALL PRECAUTIONS MAINTAINED. P) CONTINUE WITH PLAN OF CARE.
--- NOTE | 2017-06-25 23:18 | NUR ---
ATIVAN 0.5 MG IM GIVEN IN RIGHT GLUTEAL FOR ANXIETY AND AGGRESSION. SHE WAS YELLING AT STAFF, SLAPPED HUGO DOWLING IN FACE, AND BANGING ON COMPUTER.
[2017-06-26 08:46] VITALS: BP 144/76
--- NOTE | 2017-06-26 11:34 | NUR ---
B) PATIENT IS REPETIVE IN HER SPEECH AND CAN BE CHILDLIKE, SHE WILL SAY "PURPLE, PURPLE, PURPLE" OVER AND OVER OR "PRETTY, PRETTY, PRETT", SHE IS VERY CONFUSED, SHE KNOWS HER NAME AND SOMETIMES CAN REDIRECT TO APPROPRIATE BEHAVIOR. SHE AMBULATES INDEPENDENTLY, BUT UNSTEADY AT TIMES. I) PROVIDE PRESCRIBED MEDS. R) PATIENT IS COMPLIANT WITH MEDS IF CRUSHED AND PUT IN ICE CREAM. P) CONTINUE POC.
--- NOTE | 2017-06-26 12:27 | PN ---
PATIENT:BOWEN ANGEL MEDICAL RECORD: [id number] LOCATION:LILIANA Gates ADMISSION DATE: 06/23/17 PROGRESS NOTE DATE OF SERVICE: 06/25/2017 SUBJECTIVE: The patient's case was discussed with staff. She has no new complaint. OBJECTIVE: The patient denies intent to harm herself or others. She tolerates her medicines well. Eye contact is poor. Concentration is poor. ASSESSMENT: No change in diagnoses. PLAN: The patient has had some episodes of yelling. I am going to treat her with Seroquel at a dose of 25 mg daily. Her fpc prognosis is guarded. TRANSINT:[id number] Voice Confirmation ID: [id number] DOCUMENT ID: [id number] DELFINA WOOD MD at 1227 CC: [id number] DICTATION DATE: 06/25/17 1405 QUALITY LIAISON: 06/25/17 1808 ADM IN [place] [id number] [place] [address]
[2017-06-26 19:30] VITALS: BP 150/69
--- NOTE | 2017-06-26 20:10 | NUR ---
ASSESSMENT COMPLETED. VERY CONFUSED AND DISORIENTED. COMPLIANT WITH TAKING MEDICATIONS CRUSHED IN APPLESAUCE. NO AGGRESSION NOTED. WILL CONTINUE PLAN OF CARE.
[2017-06-27 09:07] VITALS: BP 155/60
--- NOTE | 2017-06-27 10:43 | PN ---
PATIENT:BOWEN ANGEL MEDICAL RECORD: [id number] LOCATION:LILIANA CostelloFlakita ADMISSION DATE: 06/23/17 PROGRESS NOTE DATE OF SERVICE: 06/26/2017 SUBJECTIVE: The patient's case was discussed with staff. She has no new complaint. OBJECTIVE: The patient is in good behavioral control with poor insight about her condition. She tolerates her medicines well. Eye contact is fair. Concentration is fair. ASSESSMENT: No change in diagnoses. PLAN: Supportive and educational interventions were made. Senior Living prognosis is guarded. TRANSINT:[id number] Voice Confirmation ID: [id number] DOCUMENT ID: [id number] DELFINA WOOD MD at 1043 CC: [id number] DICTATION DATE: 06/26/17 1253 SENIOR GRADUATE ADVISOR: 06/26/17 1759 ADM IN [facility] [address] [place] [address]
--- NOTE | 2017-06-27 12:03 | NUR ---
B) PATIENT IS AWAKE AND ALERT, SHE IS HAPPY, NO AGGRESSION NOTED. PATIENTS SON DID CALL AND STATE THAT HER SPOUSE PASSES AWAY LAST NIGHT AND THAT HE WOULD TELL HER WHEN SHE GETS BACK TO THE [facility]. HE SAID HE DID NOT WANT TO COME UP AND UPSET HER. PATIENT IS AMBULATING AND SHE IS TALKING NONSENSICAL WITH OTHERS, SHE HAS NO INSIGHT INTO HER ILLNESS. I) PROVIDE PRESCRIBED MEDS. R) PATIENT IS COMPLIANT WITH MEDS. P) CONTINUE POC.
--- NOTE | 2017-06-27 13:36 | NUR ---
PATIENT IS YELLING AND HOLLERING, NOT REDIRECTING. PROVIDED PATIENT ATIVAN 0.5 MG PO IN PUDDING, PATIENT IS HAPPILY EATING HER PUDDING AND NOT YELLING OUT OR GETTING OTHER PEOPLES SPACE.
--- NOTE | 2017-06-27 14:05 | NUR ---
PATIENT IS LESS AGITATED NOW AND SHE IS WALKING AROUND, NOT YELLING.
[2017-06-27 19:30] VITALS: BP 138/82
--- NOTE | 2017-06-27 21:00 | NUR ---
B) RECEIVED IN DAYROOM RESTING IN RECLINER WITH COVERS OVER HER FACE. CALM AND COOPERATIVE WITH ASSESSMENT. NO AGGRESSION NOTED. I) ADMINISTERED PRESCRIBED MEDS. VSS. MONITOR FOR SAFETY. R) MEDICATION COMPLIANT CRUSHED IN APPLESAUCE. P) CONTINUE PLAN OF CARE.
[2017-06-28 07:00] VITALS: BP 104/53
[2017-06-28 11:02] VITALS: Ht 167.6 cm; Wt 49.7 kg
--- NOTE | 2017-06-28 11:03 | NUR ---
PT IS RESTLESS AND PACES AROUND THE UNIT. FALL PRECAUTIONS MAINTAINED. FREQUENT REDIRECTION AND EDUCATION DONE BUT PT SHOWS NO SIGNS OF RETAINING OR UNDERSTANDING. MEDICATIONS GIVEN ORDERED. NO AGGRESSION NOTED. WILL CONTINUE TO MONITOR AND CONTINUE WITH PLAN OF CARE.
--- NOTE | 2017-06-28 11:36 | PN ---
PATIENT:BOWEN ANGEL MEDICAL RECORD: [id number] LOCATION:[facility] CostelloFlakita ADMISSION DATE: 06/23/17 PROGRESS NOTE DATE OF SERVICE: 06/27/2017 SUBJECTIVE: The patient's case was discussed with staff. She has no new complaint. OBJECTIVE: The patient is in good behavioral control with poor insight about her condition. She is severely impaired cognitively. ASSESSMENT: No change in diagnoses. PLAN: Supportive and educational interventions were made. The patient has a very advanced dementia. Her prognosis is exceedingly poor. TRANSINT:[id number] Voice Confirmation ID: [id number] DOCUMENT ID: [id number] DELFINA WOOD MD at 1136 CC: [id number] DICTATION DATE: 06/27/17 1106 POSTING MACHINE OPERATOR: 06/27/17 1127 ADM IN [address] [address]
[2017-06-28 19:30] VITALS: BP 153/65
--- NOTE | 2017-06-29 02:43 | NUR ---
B) Patient is alert and oriented to self, very confused and disoriented, pleasant and friendly to staff, I) Administered perscribed medications, monitored for falls and safety, redirected as needed, R) Medication compliant, unable to retain any information, very confused, P) Continue plan of care.
[2017-06-29 08:13] VITALS: BP 150/71
--- NOTE | 2017-06-29 11:00 | NUR ---
Alert and oriented to self only. Pleasant and cooperative with care. Redirect and reorient. Monitor for any aggression. Sits in chair clapping her hands ans repeating " that's wonderful, that's wonderful." Requires simple directions when rediecting for attempting to walk unassisted. No aggression. Safety maintained. Continue plan of care.
[2017-06-29 19:19] VITALS: BP 147/74
--- NOTE | 2017-06-29 22:31 | NUR ---
RECEIVED IN HALLWAY. SITTING IN CHAIR WITH PEERS AT HER SIDE. VERY CONFUSED. CALM AND COOPERATIVE WITH CARE AND ASSESSMENTS. NO SIGNS OF AGGRESSION. REDIRECT AND REORIENT NEEDED. RESTING IN BED EYES OPEN AT THIS TIME. CONTINUE PLAN OF CARE
--- NOTE | 2017-06-30 09:00 | NUR ---
AWAKE AND ORIENTED TO SELF ONLY, VERY CONFUSED. PLEASANT AND FRIENDLY WITH PEERS AND STAFF. REDIRECT AND REORIENT NEEDED. ADMMINISTER PRESCRIBED MEDUCATIONS. COMPLIANT WITH TAKING MEDS CRUSHED IN APPLESAUCE. MONITOR FOR FALLS AND SAFETY. CONTINUE PLAN OF CARE.
[2017-06-30 09:04] VITALS: BP 118/80
--- NOTE | 2017-06-30 14:08 | PN ---
PATIENT:BOWEN ANGEL MEDICAL RECORD: [id number] LOCATION:LILIANA Gates ADMISSION DATE: 06/23/17 PROGRESS NOTE DATE OF SERVICE: 06/29/2017 SUBJECTIVE: The patient's case was discussed with staff. She has no new complaint. OBJECTIVE: The patient is in good behavioral control with poor insight about her condition. She does tolerate her medicines well. ASSESSMENT: No change in diagnoses. PLAN: Supportive and educational interventions were made. Care Home prognosis is guarded. The patient is very disorganized, but not acutely disruptive. I would anticipate she can be transitioned out of the hospital soon if this level of improvement is maintained. TRANSINT:[id number] Voice Confirmation ID: [id number] DOCUMENT ID: [id number] DELFINA WOOD MD at 1408 CC: [id number] DICTATION DATE: 06/29/17 1500 WAREHOUSE OPERATIONS ASSOCIATE: 06/29/17 1857 ADM IN [facility] [address] [place] [address]
[2017-06-30] MEDS ORDERED: KLONOPIN0.5 MG PO (14:26)
[2017-06-30] MEDS ORDERED: SEROQUEL25 MG PO (14:27)
--- NOTE | 2017-06-30 21:34 | NUR ---
RECEIVED IN HALLWAY. STANDING AT NURSES STATION. CONFUSED. CALM AND COOPERATIVE WITH CARE AND ASSESSMENTS. IN BED YELLING OUT AT THIS TIME. CONTINUE TO REDIRECT AND REORIENT NEEDED. CONTINUE PLAN OF CARE
[2017-07-01 07:32] VITALS: BP 157/66
--- NOTE | 2017-07-01 10:00 | NUR ---
CALM AND COOPERATIVE WITH CARE AND ASSESSMENT. NO GGRESSION NOTED. SHE IS PLEASANT AND IN GOOD MOOD. MEDICATIONS GIVEN ORDERED CRUSHED IN APPLESAUCE. FALL PRCAUTIONS MAINTAINED. WILL CONTINUE TO MONITOR. PATIENT IS TO BE DISCHARGED TODAY. ALL DISCHARGE PAPERWORK REVIEWED WITH FAMILY AND FAXED TO [facility]. ALL BELONGINGS BAGGED AND ACCOUNTED FOR.
--- NOTE | 2017-07-01 12:17 | PN ---
PATIENT:BOWEN ANGEL MEDICAL RECORD: [id number] LOCATION:LILIANA Costello112 ADMISSION DATE: 06/23/17 PROGRESS NOTE DATE OF SERVICE: 06/30/2017 SUBJECTIVE: The patient's case was discussed with staff. She has no new complaint. OBJECTIVE: The patient denies intent to harm herself or others. She generally tolerates her medicines well. Eye contact is fair. Concentration is fair. ASSESSMENT: No change in diagnoses. PLAN: I anticipate the patient can be transitioned out of the hospital tomorrow. Her long-term prognosis is guarded. TRANSINT:[id number] Voice Confirmation ID: [id number] DOCUMENT ID: [id number] DELFINA WOOD MD at 1217 CC: [id number] DICTATION DATE: 06/30/17 1429 SOFTWARE ENGINEERING MANAGER: 06/30/17 2223 ADM IN [place] [id number] [place] [id number]
--- NOTE | 2017-07-02 13:34 | PN ---
PATIENT:BOWEN ANGEL MEDICAL RECORD: [id number] LOCATION:LILIANA Gates ADMISSION DATE: 06/23/17 PROGRESS NOTE DATE OF SERVICE: 07/01/2017 SUBJECTIVE: The patient's case was discussed with staff. She has no new complaint. OBJECTIVE: The patient is in good behavioral control with limited insight about her condition. She does tolerate her medicines reasonably well. ASSESSMENT: No change in diagnoses. PLAN: The patient is severely impaired, but not acutely dangerous. I think she is inappropriate for assisted living, but the assisted living center has assessed her, feels they can handle her and she is going to have some extra assistance provided to her. I do not know if this is at the family's expense or if the facility is just going to do this for her, but either way, they feel that they can handle her. She is not acutely or directly dangerous, but she needs 98-itnt-m-day supervision given the very impaired and severe nature of her situation. TRANSINT:[id number] Voice Confirmation ID: [id number] DOCUMENT ID: [id number] DELFINA WOOD MD at 1334 CC: [id number] DICTATION DATE: 07/01/17 1227 ORTHODONTIC TECHNICIAN ASSISTANT: 07/02/17 0208 DIS IN 07/01/17 [place] [address] [place] [address]
== END 2017-07-01 13:30 | disposition home or self-care (01) | DRG 57 ==
LOC: D.PSYCH 21:30
PROVIDERS: ADMIT Psychiatry & Neurology Psychiatry
DX: G30.1 Alzheimer's disease with late onset (principal); F02.81 Dementia in other diseases classified elsewhere, unspecified severity, with behavioral disturbance; M81.0 Age-related osteoporosis without current pathological fracture; F41.9 Anxiety disorder, unspecified; E53.8 Deficiency of other specified B group vitamins; E55.9 Vitamin D deficiency, unspecified; K59.00 Constipation, unspecified; I10 Essential (primary) hypertension; Z91.81 History of falling